=== PATIENT | male | born 1970 | race Hispanic/Latino ===

== ENCOUNTER 2018-03-15 09:13 | Emergency (ER) | payer BC ==
[2018-03-15] MEDS ORDERED: DEXAMETHASONE 10 MG/ML VIAL ONE (11:20)
[2018-03-15] MEDS ORDERED: HYDROCODONE/APAP 5/325 MG TAB ONE (11:20)
[2018-03-15] MEDS ORDERED: DIAZEPAM 5 MG TABLET ONE (11:21)
--- NOTE | 2018-03-15 12:14 | ER ---
Nurse's Notes [facility] Name: Zeke Henriquez Age: 47 yrs Sex: Male : 1970 Arrival Date: 03/15/2018 Time: 09:16 Bed 10 Private MD: Diagnosis: Muscle spasm of back Presentation: 03/15 09:21 Presenting complaint: Patient states: low back pain that started 3 weeks ago. Pain sv worse at night. Denies injury. Transition of care: patient was not received from another setting of care. Onset of symptoms was February 22, 2018. Risk Assessment: Do you want to hurt yourself or someone else? Patient reports no desire to harm self or others. Initial Sepsis Screen: Does the patient meet any 2 criteria? No. Patient's initial sepsis screen is negative. Does the patient have a suspected source of infection? No. Patient's initial sepsis screen is negative. Care prior to arrival: None. 09:21 Method Of Arrival: Ambulatory sv 09:21 Acuity: SHARON 4 sv Historical: - Allergies: 09:22 No Known Allergies; sv - Home Meds: 09:22 None [Active]; sv - PMHx: 09:22 Kidney stones; sv - PSHx: 09:22 Lithotripsy; sv - Immunization history:: Adult Immunizations up to date. - Social history:: Smoking status: Patient/guardian denies using tobacco. - Ebola Screening: : No symptoms or risks identified at this time. Screenin:36 Abuse screen: Denies threats or abuse. Denies injuries from another. Nutritional ss screening: No deficits noted. Tuberculosis screening: Never had TB. Fall Risk None identified. Assessment: 10:50 General: Appears in no apparent distress. comfortable, Behavior is calm, cooperative. ss Pain: Complains of pain in low back Pain currently is 8 out of 10 on a pain scale. Quality of pain is described as pinching, Is continuous, Aggravated by increased activity, repositioning. Neuro: Level of Consciousness is awake, alert, obeys commands, Oriented to person, place, time, situation. Respiratory: Airway is patent Respiratory effort is even, unlabored, Respiratory pattern is regular, symmetrical. Derm: Skin is intact, is healthy with good turgor, Skin is pink, warm \T\ dry. normal. Musculoskeletal: Circulation, motion, and sensation intact. Range of motion: intact in all extremities, Swelling absent. 11:35 Reassessment: Awaiting XRAYS to be obtained at this time. Pt reports he drove himself ss and would not be able to find a ride home. [place] and Valium held. [employer] notified. Call light within reach. Pt is grateful for care received thus far. Vital Signs: 09:23 BP 126 / 85; Pulse 79; Resp 18; Temp 98.1(TE); Pulse Ox 95% on R/A; Weight 97.52 kg; sv Height 5 ft. 4 in. (162.56 cm); Pain 6/10; 09:23 Body Mass Index 36.90 (97.52 kg, 162.56 cm) sv ED Course: 09:16 Patient arrived in ED. as 09:22 Triage completed. sv 09:23 Arm band placed on right wrist. sv 09:24 Patient placed in waiting room, Patient notified of wait time. sv 10:39 Travon Hurtado PA is PHCP. [facility] 10:39 Joel Irby MD is Attending Physician. jmm 10:39 Patient placed in an exam room. sv 11:34 Kimber Phan, KRISTIN is Primary Nurse. ss 11:36 Patient has correct armband on for positive identification. Call light in reach. ss 11:36 No provider procedures requiring assistance completed. Patient did not have IV access ss during this emergency room visit. 11:53 Lumbar Spine (3 Views) XRAY In Process Unspecified. EDMS Administered Medications: 11:23 Drug: Dexamethasone 10 mg Route: IM; Site: right deltoid; ss 12:36 Follow up: Response: Pain is decreased ss 11:34 Not Given (pt reports he does not have a ride home and is okay with just having ss Decadron IM): [place] 5 mg-325 mg 1 tabs PO once 11:34 Not Given (Pt reports he does not have a ride home): Valium 5 mg PO once ss Outcome: 11:36 Discharged to home ambulatory. ss 11:36 Condition: good 11:36 Discharge instructions given to patient, family, Instructed on discharge instructions, follow up and referral plans. medication usage, Demonstrated understanding of instructions, follow-up care, medications, Prescriptions given X 2. 12:14 Discharge ordered by . jmm 12:31 Patient left the ED. em1 Signatures: Dispatcher [employer] Whitney Messina, RN RN Travon Hurtado PA PA jmm Martinez, Amelia as Martinez, Eric em1 Kimber Phan, KRISTIN RN ss
--- NOTE | 2018-03-15 12:14 | EDPHYS ---
Physician Documentation [facility] Name: Zeke Henriquez Age: 47 yrs Sex: Male : 1970 Arrival Date: 03/15/2018 Time: 09:16 Bed 10 Private MD: ED Physician Joel Irby HPI: 03/15 10:52 This 47 yrs old Male presents to ER via Ambulatory with complaints of Low Back jmm Pain. 10:52 The patient presents with pain that is acute, and an injury. The symptoms are located jmm in the low back. The pain does not radiate. Onset: The symptoms/episode began/occurred suddenly, 3 week(s) ago. Modifying factors: The patient symptoms are alleviated by rom, the patient symptoms are aggravated by movement. Associated signs and symptoms: Pertinent negatives: abdominal pain, dysuria, fever, hematuria, incontinence, numbness, tingling, urinary retention, weakness. This is a 47 year old male with no chronic medical conditions that presents to the ED with low back pain beginning while at work 3 weeks ago. 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 Patient states symptoms are worsened while changing position in bed. The symptoms decrease in severity after he is active. Denies radiation of pain, numbness, weakness, IV drug use, fever, incontinence, urinary retention, previous spinal surgeries. . Historical: - Allergies: 09:22 No Known Allergies; sv - Home Meds: 09:22 None [Active]; sv - PMHx: 09:22 Kidney stones; sv - PSHx: 09:22 Lithotripsy; sv - Immunization history:: Adult Immunizations up to date. - Social history:: Smoking status: Patient/guardian denies using tobacco. - Ebola Screening: : No symptoms or risks identified at this time. ROS: 10:52 Constitutional: Negative for fever, chills, and weight loss, Cardiovascular: Negative jmm for chest pain, palpitations, and edema, Respiratory: Negative for shortness of breath, cough, wheezing, and pleuritic chest pain, Abdomen/GI: Negative for abdominal pain, nausea, vomiting, diarrhea, and constipation. 10:52 Back: Positive for pain with movement, Negative for radiated pain. 10:52 MS/extremity: Negative for acute changes, decreased range of motion. 10:52 Neuro: Negative for numbness, weakness. 10:52 All other systems are negative. Exam: 10:52 Cardiovascular: Regular rate and rhythm. No gallops, murmurs, or rubs. Full/Equal [facility] distal pulses. Respiratory: Lungs have equal breath sounds bilaterally, clear to auscultation. No rales, rhonchi or wheezes noted. No increased work of breathing, no retractions or nasal flaring. 10:52 Constitutional: The patient appears in no acute distress, alert, awake. 10:52 Abdomen/GI: Inspection: abdomen appears normal. 10:52 Musculoskeletal/extremity: full extension of great toes appreciated bilaterally. 10:52 Neuro: Orientation: is normal, Mentation: is normal, Memory: is normal, Gait: is steady. Vital Signs: 09:23 BP 126 / 85; Pulse 79; Resp 18; Temp 98.1(TE); Pulse Ox 95% on R/A; Weight 97.52 kg; sv Height 5 ft. 4 in. (162.56 cm); Pain 6/10; 09:23 Body Mass Index 36.90 (97.52 kg, 162.56 cm) sv MDM: 10:51 Patient medically screened. [facility] 10:52 Differential diagnosis: strain, muscle spasm, herniated disc. Data reviewed: vital [facility] signs, nurses notes. 12:59 Special discussion: I have referred the patient to see his PCP for further evaluation jm of high blood pressure. ED course: Imaging studies revealed no acute findings. Patient's PE does not indicate concern for cauda equina, patient is alert and non toxic in appearance in the ED, I do not suspect abscess. . 03/15 10:51 Order name: Lumbar Spine (3 Views) XRAY; Complete Time: 12:17 [facility] Administered Medications: 11:23 Drug: Dexamethasone 10 mg Route: IM; Site: right deltoid; ss 12:36 Follow up: Response: Pain is decreased ss 11:34 Not Given (pt reports he does not have a ride home and is okay with just having ss Decadron IM): [place] 5 mg-325 mg 1 tabs PO once 11:34 Not Given (Pt reports he does not have a ride home): Valium 5 mg PO once ss Disposition: 13:41 Co-signature as Attending Physician, Joel Irby MD. Disposition: 03/15/18 12:14 Discharged to Home. Impression: Muscle spasm of back. - Condition is Stable. - Discharge Instructions: Muscle Cramps and Spasms. - Prescriptions for Ultracet 37.5- 325 mg Oral Tablet - take 1 tablet by ORAL route every 6 hours - for up to 5 days; do not exceed 8 tablets per day.; 20 tablet. Valium 5 mg Oral Tablet - take 1 tablet by ORAL route every 8 hours As needed; 15 tablet. - Medication Reconciliation Form, Thank You Letter, Antibiotic Education, Prescription Opioid Use, Work release form form. - Follow up: Private Physician; When: 1 - 2 days; Reason: Re-evaluation by your physician. - Notes: Please follow up with you primary care provider in 1 to 2 days for reevaluation. Return to the emergency department if you develop fever, weakness, increased pain, difficulty with urination or bowel movements or any other concerning symptoms. Signatures: Dispatcher [employer] EDWhitney Andrews RN RN sv Mickail, Joel, PA PA jmm Martinez, Vijay 1 Kimber Phan RN RN ss Joel Irby MD MD gs Corrections: (The following items were deleted from the chart) 12:31 12:14 03/15/2018 12:14 Discharged to Home. Impression: Muscle spasm of back. Condition em1 is Stable. Forms are Medication Reconciliation Form, Thank You Letter, Antibiotic Education, Prescription Opioid Use. Follow up: Private Physician; When: 1 - 2 days; Reason: Re-evaluation by your physician. [email or web address]
--- NOTE | 2018-03-15 12:16 | RAD REPORT ---
EXAM DESCRIPTION: RAD - Lumbar Spine 3 Views - 03/15/2018 11:54 am CLINICAL HISTORY: Back pain FINDINGS: The alignment of the lumbar spine is satisfactory. No fracture or dislocation is seen. Mild spondylosis involves the lumbar spine
== END 2018-03-15 12:31 | disposition home or self-care (01) ==
LOC: ER 09:13
DX: M62.830 Muscle spasm of back (principal)
CPT/HCPCS: 72100; 96372; 99283; J1100